=== PATIENT | female | born 1985 | race Two or more races ===

== ENCOUNTER → 2025-05-04 | Emergency (ER) | payer OTHER ==
[~2025-05-04] VITALS: Ht 154.9 cm; Wt 70.3 kg
[~2025-05-04] MED LIST: CLINDAMYCIN PHOSPHATE 150 MG/ML (600mg) IV ONE
[2025-05-04 15:32] LABS: BASO % 0.4 % (0.1-1.2); EOS # 0.48 (0.04-0.54); EOS % 6.0 % (0.7-7.0); LYMPH # 1.88 (1.18-3.74); LYMPH % 23.5 % (19.3-53.1); MEAN PLATELET VOLUME 10.90 fl (9.4-12.4); MONO # 0.61 (0.24-0.82); MONO % 7.6 % (4.7-12.5); NEUT # 4.97 (1.56-6.13); NEUT % 62.2 % (34.0-71.1); RED CELL DISTRIBUTION WIDTH 13.9 % (11.6-14.4)
== END | disposition home or self-care (01) ==
LOC: ER 13:52
PROVIDERS: General Practice
DX: L03.213 Periorbital cellulitis (principal)

== ENCOUNTER 2025-05-07 21:12 | Emergency (ER) | payer OTHER ==
[~2025-05-07] VITALS: Ht 154.9 cm; Wt 70.3 kg
[2025-05-07] MEDS ORDERED: CEFTRIAXONE SODIUM 1,000 MG VIAL IM STA (23:26)
== END 2025-05-07 23:55 | disposition home or self-care (01) ==
LOC: ER 21:12
DX: L03.213 Periorbital cellulitis (principal); J32.9 Chronic sinusitis, unspecified; L01.09 Other impetigo